=== PATIENT | male | born 1990 | race Two or more races ===

== ENCOUNTER 2024-12-28 16:54 | Emergency (ER) | payer OTHER ==
[~2024-12-28] VITALS: Ht 170.2 cm; Wt 77.1 kg
[2024-12-28] MEDS ORDERED: KETOROLAC TROMETHAMINE 60 MG VIAL IM STA (18:48)
[2024-12-28] MEDS ORDERED: METOCLOPRAMIDE HCL 5 MG/ML VIAL IM STA (18:48)
== END 2024-12-28 20:17 | disposition home or self-care (01) ==
LOC: ER 16:54
DX: G44.209 Tension-type headache, unspecified, not intractable (principal)
CPT/HCPCS: 96372; 99282; J1885; J2765